=== PATIENT | female | born 1985 | race Two or more races ===

== ENCOUNTER 2022-01-04 06:32 | Inpatient (IN) | payer OTHER ==
[~2022-01-04] VITALS: Ht 160 cm; Wt 83.9 kg
[2022-01-04] MEDS ORDERED: PRENA1 TRUE CO1 EACH PO (09:57)
[2022-01-04] MEDS ORDERED: FAMOTIDINE20 MG (10:45)
[2022-01-04] MEDS ORDERED: CLARITIN10 MG (10:45)
== END 2022-01-06 12:35 | disposition home or self-care (01) | DRG 807 ==
LOC: SURG-SUITE 06:32 → LDR 06:32 → SURG-SUITE 14:50
PROVIDERS: ADMIT Obstetrics & Gynecology Maternal & Fetal Medicine; ATTEND Obstetrics & Gynecology Maternal & Fetal Medicine
PROC: 10E0XZZ Delivery of Products of Conception, External Approach (ICD-10-PCS; principal; 2022-01-04)
PROC: 0KQM0ZZ Repair Perineum Muscle, Open Approach (ICD-10-PCS; 2022-01-04)
PROC: 0W8NXZZ Division of Female Perineum, External Approach (ICD-10-PCS; 2022-01-04)
PROC: 4A1HXCZ Monitoring of Products of Conception, Cardiac Rate, External Approach (ICD-10-PCS; 2022-01-04)
DX: O70.1 Second degree perineal laceration during delivery (principal); Z37.0 Single live birth; Z20.822 Contact with and (suspected) exposure to COVID-19; Z3A.37 37 weeks gestation of pregnancy

== ENCOUNTER 2024-03-01 06:13 | Inpatient (IN) | payer OTHER ==
[~2024-03-01] VITALS: Ht 152.4 cm; Wt 78.0 kg
[~2024-03-01 06:13] MED LIST: CLARITIN10 MG; FAMOTIDINE20 MG; PRENA1 TRUE CO1 EACH PO
[2024-03-01] MEDS ORDERED: AMPICILLIN SODIUM 1,000 MG VIAL IV SCH (06:24)
[2024-03-01] MEDS ORDERED: RINGERS SOLUTION,LACTATED 500 ML IV SCH (06:30)
[2024-03-01] MEDS ORDERED: AMPICILLIN SODIUM 2,000 MG VIAL IV ONE (06:30)
[2024-03-01 07:34] LABS: HEMATOCRIT 33.9 % (36.0-45.00); HEMOGLOBIN 11.6 g/dL (12.0-15.00); MEAN CELL VOLUME 87.5 fL (80.00-100.00); MEAN CORPUSCULAR HEMOGLOBIN 30.1 pg (27.00-32.0); MEAN CORPUSCULAR HGB CONC 34.4 g/dl (32.0-36.0); PLATELET COUNT 183 K/uL (150-450); RED BLOOD COUNT 3.87 M/uL (4.00-6.00); RED CELL DISTRIBUTION WIDTH 13.4 % (11.5-14.5)
[2024-03-01] MEDS ORDERED: OXYTOCIN 500 ML IV ONE (08:00)
[2024-03-01 08:16] LABS: ALBUMIN 2.8 gm/dL (3.4-5.0); BILIRUBIN TOTAL 0.29 mg/dL (0.3-1.2); CALCIUM 8.5 mg/dL (8.5-10.1); CREATININE SERUM 0.68 mg/dL (0.55-1.02); GFR 96.32; GLOBULINA 4.1 G/DL (2.4-3.5); POTASSIUM 4.35 mEq/L (3.5-5.1); TOTAL PROTEIN 6.9 gm/dL (6.4-8.2)
[2024-03-01] MEDS ORDERED: MORPHINE SULFATE 4 MG/ML VIAL IV STA (08:19)
[2024-03-01 08:43] LABS: INR < 0.93; PARTIAL THROMBOPLASTIN TIME 26.5 SECONDS (22.0-34.0); PROTHROMBIN TIME 9.3 SECONDS (9.0-11.5)
[2024-03-01] MEDS ORDERED: OXYTOCIN 1,000 ML IV ONE (09:30)
[2024-03-01] MEDS ORDERED: IBUprofen 400 MG TABLET PO PRN (09:30)
[2024-03-01] MEDS ORDERED: ERYTHROMYCIN BASE 1 GM TUBE OP SCH (09:30)
[2024-03-01] MEDS ORDERED: CHLORHEXIDINE GLUCONATE 120 ML BOTTLE TOP SCH (09:30)
[2024-03-01] MEDS ORDERED: DOCUSATE CALCIUM 240 MG CAPSULE PO SCH (21:00)
[2024-03-02 07:28] LABS: HEMOGLOBIN 10.2 g/dL (12.0-15.00); MEAN CELL VOLUME 87.3 fL (80.00-100.00); MEAN CORPUSCULAR HEMOGLOBIN 29.8 pg (27.00-32.0); MEAN CORPUSCULAR HGB CONC 34.1 g/dl (32.0-36.0); PLATELET COUNT 165 K/uL (150-450); RED BLOOD COUNT 3.44 M/uL (4.00-6.00); RED CELL DISTRIBUTION WIDTH 13.6 % (11.5-14.5)
[2024-03-02] MEDS ORDERED: PNV,CALCIUM 72/IRON/FOLIC ACID 1 TAB TABLET PO SCH (09:00)
[2024-03-02] MEDS ORDERED: FF) RHO(D) IMMUNE GLOBULIN (POM) IM STA (11:03)
== END 2024-03-03 13:50 | disposition home or self-care (01) | DRG 807 ==
LOC: LDR 06:13 → OB/GYN 06:13
PROVIDERS: Obstetrics & Gynecology Gynecology; ADMIT Obstetrics & Gynecology Maternal & Fetal Medicine; ATTEND Obstetrics & Gynecology Maternal & Fetal Medicine
PROC: 10E0XZZ Delivery of Products of Conception, External Approach (ICD-10-PCS; principal; 2024-03-01)
PROC: 0UQG7ZZ Repair Vagina, Via Natural or Artificial Opening (ICD-10-PCS; 2024-03-01)
PROC: 4A1HXCZ Monitoring of Products of Conception, Cardiac Rate, External Approach (ICD-10-PCS; 2024-03-01)
DX: O71.4 Obstetric high vaginal laceration alone (principal); Z37.0 Single live birth; Z20.822 Contact with and (suspected) exposure to COVID-19; O99.824 Streptococcus B carrier state complicating childbirth; Z3A.37 37 weeks gestation of pregnancy